=== PATIENT | female | born 1945 | race African-American/Black ===

== ENCOUNTER → 2017-08-14 | Outpatient (CLI) | payer MEDICARE, OTHER ==
[~2017-08-14] MED LIST: ASPIR 8181 MG PO; CLINDAMYCIN HC300 MG PO; HYDROCODONE PO; IBUPROFEN 800 MG; IBUPROFEN PO; LISINOPRIL20 MG PO; LORTAB 7.5-5001 EACH PO; MELOXICAM PO; NEXIUM40 MG PO; SEPTRA DS TABL1 EACH PO; SIMVASTATIN20 MG PO; SUCRALFATE1 GM PO; VERAPAMIL ER240 MG PO
--- NOTE | 2017-08-14 12:58 | Diagnostic Imaging Report ---
PROCEDURE:X-RAY RIGHT FOOT, COMPLETE COMPARISON:None. INDICATIONS:RIGHT FOOT PAIN FINDINGS: There are no fractures, dislocations, lytic or blastic lesions. Dorsal and plantar calcaneal enthesophyte. The bones are well-mineralized. The soft-tissues are unremarkable. CONCLUSION: No acute osseous abnormalities radiograph. Dictated by: Braeden Sheffield M.D. on 08/14/2017 at 12:59 Electronically approved by: Braeden Sheffield M.D. on 08/14/2017 at 12:59
== END ==
LOC: RAD 11:58
PROVIDERS: ATTEND Internal Medicine
DX: M79.671 Pain in right foot (principal)

== ENCOUNTER → 2017-09-02 | Day surgery (SDC) | payer MEDICARE, OTHER ==
[2017-08-27 11:46] LABS: BASOPHILS % 0.5 % (0.0-1.0); EOSINOPHILS # (AUTO) 0.1 (0.0-0.4); EOSINOPHILS % 1.8 % (0.0-6.0); HEMATOCRIT 38.3 % (34.2-44.1); HEMOGLOBIN 12.7 g/dL (12.0-16.0); LYMPHOCYTES # (AUTO) 2.3 (1.0-3.2); LYMPHOCYTES % 29.7 % (18.0-39.1); MEAN CORPUSCULAR HEMOGLOBIN 25.5 pg (28-32); MEAN CORPUSCULAR HGB CONC 33.2 g/dL (31-35); MEAN CORPUSCULAR VOLUME 76.8 fL (81-99); MONOCYTES # (AUTO) 0.7 (0.2-0.8); MONOCYTES % 8.3 % (4.4-11.3); NEUTROPHILS # (AUTO) 4.7 (2.1-6.9); NEUTROPHILS % 59.4 % (38.7-80.0); PLATELET COUNT 186 x10e3/uL (140-360); RED BLOOD COUNT 4.99 x10e6/uL (3.6-5.1); RED CELL DISTRIBUTION WIDTH 16.4 % (11.7-14.4)
[~2017-09-02] MED LIST changes: +ALEVE PO; +FENTANYL CITRATE/PF 100MCG/2 ML INJ ONE; +FISH OIL PO; +HYOSCYAMINE SULFATE 0.5 MG/ML AMP ONE; +MIDAZOLAM HCL 2 MG/2 ML VIAL ONE; +NORCO 7.5-3251 EACH PO; +PROPOFOL IV EMULSION 10 MG/ML 50 ML VIAL ONE
--- OUTSIDE RECORDS SUMMARY | 2017-09-02 07:30 | XMS REPORT | Clinical Summary ---
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 Name Role Phone Jose Garcia MD PCP Allergies Not on File Current Medications Not on file Active Problems Not on file Encounters Date Type Specialty Care Team Description 08/11/2017 Transcribe Physical Therapy Simon Yoo MD Spondylolisthesis of Orders lumbar region (Primary Dx) after 09/01/2016 Social History Tobacco Use Types Packs/Day Years Used Date Never Assessed Sex Assigned at Date Recorded Not on file Last Filed Vital Signs Not on file Plan of Treatment Date Type Specialty Care Team Description 09/02/2017 Office Visit Physical Therapy System, Provider Not In, 09/04/2017 Office Visit Physical Therapy System, Provider Not In, Nita Swanson S, PT 09/09/2017 Office Visit Physical Therapy System, Provider Not In, Health Maintenance Due Date Last Done Comments BREAST CANCER SCREENING 1996 COLON CANCER SCREENING 1996 SHINGRIX VACCINE (#1) 1996 ZOSTER VACCINE 2006 PNEUMOCOCCAL 2011 POLYSACCHARIDE VACCINE AGE 65 AND OVER PNEUMOCOCCAL-13 2011 INFLUENZA VACCINE 11/11/2017 Results Not on fileafter 09/01/2016 Insurance Payer Benefit Subscriber ID Type Phone Address Plan / Group [facility] MEDICARE [facility] DUAL xxxxxxxxx HMO COMPLETE MCR
--- OUTSIDE RECORDS SUMMARY | 2017-09-02 07:30 | XMS REPORT ---
[facility] Address Unknown Phone Unavailable Care Team Providers Care Shipper Receiver Name Role Phone LICO BRIGHT Unavailable Unavailable Problems This patient has no known problems. Allergies, Adverse Reactions, Alerts This patient has no known allergies or adverse reactions. Medications This patient has no known medications. Results Test Description Test Time Test Comments Text Results Atomic Results Result Comments FOOT RIGHT COMPLETE [place] [id number] [place] [address] Patient Name: NYLA COSBY MR #: [id number] : 1945 Age/Sex: 72/F Req # : [id number] Adm Physician: Ordered by: LICO BRIGHT MD Report #: [id number] Location: [facility] Room/Bed: Procedure: [id number] DX/FOOT RIGHT COMPLETE Exam Date: 08/14/17 Exam Time : 1225 REPORT STATUS: Signed PROCEDURE: X-RAY RIGHT FOOT, COMPLETE COMPARISON: None. INDICATIONS: RIGHT FOOT PAIN FINDINGS: There are no fractures, dislocations, lytic or blastic lesions. Dorsal and plantar calcaneal enthesophyte. The bones are well-mineralized. The soft-tissues are unremarkable. CONCLUSION: No acute osseous abnormalities radiograph. Dictated by: Braeden Emery M.D. on 2017 at 12:59 Electronically approved by: Braeden Emery M.D. on 2017 at 12:59 Dictated By: BRAEDEN EMERY MD 1251 Transcribed By: TITO on 08/14/17 1259 COPY TO: LICO BRIHGT MD
--- NOTE | 2017-09-02 14:18 | Operative Report ---
DATE OF PROCEDURE: September 02, 2017 REFERRING PHYSICIAN: Dr. Lico Bright PROCEDURES PERFORMED 1. Esophagogastroduodenoscopy with esophageal brushings and esophageal dilatation and biopsies. 2. Colonoscopy with polypectomy. INDICATIONS FOR EGD: Dysphagia, odynophagia. INDICATIONS FOR COLONOSCOPY: Colorectal cancer screening. MEDICATION: Patient was done under MAC. Please see anesthesiologist's note. PROCEDURE: With the patient in the left lateral decubitus position, the flexible fiberoptic Olympus gastroscope was introduced into the esophagus under direct visualization without any difficulty. There were multiple yellowish-whitish plaques noted in the esophagus, and brushings were obtained and sent to stain for leena. A mild stricture was noted in the distal esophagus that was dilated to a size 52-Slovak Vasquez. A minute tongue of velvety red mucosa was noted to extend proximally from the GE junction, and biopsies were obtained to rule out Guevara's. The scope was then advanced with ease into the stomach. Mucosa overlying the antrum and the body revealed some patchy erythema and mild to moderate edema, and biopsies were obtained and sent to stain for H. pylori. The pyloric channel was ulcerated, but it was traversed with ease. The scope was advanced all the way to the 2nd portion of the duodenum. The scope was then withdrawn slowly. Mucosa overlying the proximal 2nd portion and the duodenal bulb appeared to be within normal limits. The scope was then withdrawn back into the stomach and retroflexed. Mucosa overlying the fundus appeared to be within normal limits. Also, an intact Bing fundoplication was noted. The scope was straightened out. The stomach was decompressed. The scope was subsequently withdrawn. Patient tolerated the procedure well. IMPRESSION 1. Rule out leena esophagitis. 2. Esophageal stricture dilated to size 52-Slovak Vasquez. 3. Rule out Guevara's esophagus. 4. Status post Bing fundoplication, intact. 5. Gastritis, biopsied. Biopsy sent to stain for H. pylori. 6. Ulcerated pyloric channel. PLAN: Follow up histology. Initiate Protonix 40 mg 1 p.o. q.a.m. a.c. and Diflucan 200 mg 1 p.o. daily times 7 days. The patient was then turned around. After adequate lubrication of the anal canal, a flexible fiberoptic Olympus colonoscope was inserted into the rectum with ease and advanced all the way to the cecum. Diverticular disease was noted throughout the colon. The scope was then withdrawn slowly, and the mucosa overlying the ascending and transverse, other than for diverticular disease, appeared to be within normal limits. One polyp was hot biopsied from the descending colon. Diverticular disease was noted to involve the descending and the sigmoid. Two polyps were hot biopsied from the sigmoid colon. The scope was then retroflexed into the distal rectum, and small internal hemorrhoids were noted, none of which was actively bleeding. The scope was then straightened out. The scope was then subsequently withdrawn. Patient tolerated the procedure well. IMPRESSION 1. Pandiverticulosis. 2. Descending colon polyp, hot biopsied. 3. Sigmoid colon polyps, minute, times 2, hot biopsied. 4. Small internal hemorrhoids, none actively bleeding. PLAN: Follow up histology. Initiate high-fiber, low-fat diet. Initiate high-fiber supplement. Patient will need a followup colonoscopy in 3 years. Job#: [id number] cc:LICO BRIGHT MD
== END | disposition home or self-care (01) ==
LOC: OR 07:27
PROVIDERS: ATTEND Internal Medicine Gastroenterology
DX: Z12.11 Encounter for screening for malignant neoplasm of colon (principal); K63.5 Polyp of colon; K29.70 Gastritis, unspecified, without bleeding; K22.2 Esophageal obstruction; K25.9 Gastric ulcer, unspecified as acute or chronic, without hemorrhage or perforation; K57.30 Diverticulosis of large intestine without perforation or abscess without bleeding; K20.9 Esophagitis, unspecified; K59.00 Constipation, unspecified; K64.8 Other hemorrhoids; Z98.890 Other specified postprocedural states; I10 Essential (primary) hypertension; Z01.810 Encounter for preprocedural cardiovascular examination; Z01.812 Encounter for preprocedural laboratory examination; Z79.82 Long term (current) use of aspirin; Z68.33 Body mass index [BMI] 33.0-33.9, adult
CPT/HCPCS: 36415; 43239; 43450; 45384; 84443; 85025; 93005; J1980; J2250; 45378

== ENCOUNTER → 2017-09-25 | Outpatient (CLI) | payer MEDICARE, OTHER ==
[~2017-09-25] MED LIST changes: -FENTANYL CITRATE/PF 100MCG/2 ML INJ ONE; -HYOSCYAMINE SULFATE 0.5 MG/ML AMP ONE; -MIDAZOLAM HCL 2 MG/2 ML VIAL ONE; -PROPOFOL IV EMULSION 10 MG/ML 50 ML VIAL ONE
--- NOTE | 2017-10-01 08:31 | Diagnostic Imaging Report ---
#[id number] - MGSCRBIL #BILATERAL DIGITAL SCREENING MAMMOGRAM WITH CAD: 09/25/2017 CLINICAL: Routine screening. Comparison is made to exams dated: 09/24/2016 mammogram and 09/21/2015 mammogram - [facility]. Current study contains 5 films. There are scattered fibroglandular elements in both breasts. Current study was also evaluated with a Computer Aided Detection (CAD) system. There are benign vascular calcifications and scattered calcifications in both breasts. No significant masses, calcifications, or other findings are seen in either breast. There has been no significant interval change. IMPRESSION: BENIGN There is no mammographic evidence of malignancy. A 1 year screening mammogram is recommended. The patient will be notified by letter of the results. Gopal Dean Jr., D.O. cw/:09/30/2017 12:00:32 Deputy Clerk: SHERIF SMITH, [facility] letter sent: Compared to Prior B9 Mammogram BI-RADS: 2 Benign
== END | disposition home or self-care (01) ==
LOC: MAMMO 08:57
PROVIDERS: ATTEND Internal Medicine
DX: Z12.31 Encounter for screening mammogram for malignant neoplasm of breast (principal)
CPT/HCPCS: 77067

== ENCOUNTER → 2018-01-19 | Outpatient (CLI) | payer OTHER ==
--- NOTE | 2018-01-20 09:29 | Diagnostic Imaging Report ---
History: Low back pain with sciatica in left leg Comparison studies: None Technique: Sagittal, coronal and axial T2 , sagittal T1 and IR, axial spin density oblique. Intravenous contrast: None Findings: Number of lumbar vertebral bodies:5 Alignment: Mild grade 1 anterolisthesis of L4 over L5 (0.7 cm), grade 1 anterolisthesis of L5 over S1 (0.9 cm).No scoliosis. Soft tissues: No T2 hyperintense inflammatory changes. Paraspinal muscles: Fatty infiltration of the paraspinal musculature secondary to mild to moderate atrophy or significant at the lumbosacral junction. Lower thoracic cord:Normal in signal and morphology. The tip of the conus is at L1 inferior endplate. Cauda equina: No masses. No arachnoiditis. Vertebrae: Normal in height and signal intensity. No compression fractures, infection or neoplasm. Degenerative changes: Disc degeneration with decreased intervertebral space and loss of T2 signal at the lower thoracic spine, T10-11, T11-T12. L1-L2: No abnormalities. L2-L3: Mild disc degeneration with loss of T2 signal. Mild diffuse disc bulge and mild facet hypertrophy without significant canal stenosis or foraminal narrowing. L3-L4: Disc degeneration with loss of T2 signal and decreased intervertebral space. Diffuse disc bulge and mild facet hypertrophy results in mild canal stenosis and mild bilateral foraminal narrowing. L4-L5: Disc degeneration with decreased T2 signal and decreased intervertebral space. Grade 1 degenerative anterolisthesis. Uncoverage of superior disc, diffuse disc bulge and moderate facet hypertrophy results in moderate canal stenosis, narrowing of the bilateral subarticular recesses and moderate right and mild left foraminal narrowing. L5-S1: Disc degeneration with decreased intervertebral space. Mild endplate edema towards the left side. Grade 1 degenerative anterolisthesis. Uncoverage of the superior disc material, diffuse disc bulge, severe facet hypertrophy and ligamentum flavum thickening results in severe canal stenosis, moderate right and severe left foraminal narrowing. Additional findings: Degenerative changes of the bilateral SI joints IMPRESSION: Severe canal stenosis, moderate right and severe left foraminal narrowing at L5-S1 secondary to degenerative grade 1 anterolisthesis, diffuse disc bulge, severe facet hypertrophy and ligamentum flavum thickening. Impingement of the exiting L5 nerve root at the foramina may explain patient's symptoms. Moderate canal stenosis, narrowing of the bilateral subarticular recesses and moderate right foraminal narrowing at L4-L5. Other degenerative changes as described above Signed by: DR Hair Herring M.D. on 01/20/2018 9:26 AM
== END ==
LOC: MRI 16:51
PROVIDERS: ATTEND Internal Medicine
DX: M79.605 Pain in left leg (principal); M54.42 Lumbago with sciatica, left side; G62.9 Polyneuropathy, unspecified
CPT/HCPCS: 72148

== ENCOUNTER → 2018-10-01 | Outpatient (CLI) | payer OTHER | LOC: MAMMO 10:39 | PROVIDERS: ATTEND Internal Medicine | DX: Z12.31 Encounter for screening mammogram for malignant neoplasm of breast (principal) | CPT/HCPCS: 77067 ==

== ENCOUNTER → 2018-10-21 | Outpatient (CLI) | payer MEDICARE, OTHER ==
[~2018-10-21] MED LIST changes: +GADOBENATE DIMEGLUMINE 1 ML IV ONE; +PANTOPRAZOLE SO40 MG PO
[2018-10-21 11:32] LABS: BLOOD UREA NITROGEN 16 mg/dL (7-26); BUN/CREATININE RATIO 16 (6-25); CREATININE, SERUM 0.97 mg/dL (0.57-1.11); EST GLOMERULAR FILTRATION RATE > 60 ML/MIN (60-)
--- NOTE | 2018-10-21 16:14 | Diagnostic Imaging Report ---
TECHNIQUE: Magnetic resonance imaging of the left forearm was performed without and with injected contrast. 18 cc of MultiHance administered COMPARISON: None available. HISTORY: Lump on arm FINDINGS: Bone marrow signal is normal. No edema or infiltrating lesion. Muscle bulk intact. No edema or atrophy. Soft tissue marker placed over the dorsal forearm. No concerning mass or abnormal enhancement present. Lipomatous tissue is visualized in this region with possible 2 cm lipoma. IMPRESSION: Lipomatous tissue versus ill-defined lipoma in the dorsal forearm adjacent to the soft tissue marker. Signed by: Dr. Juan David Sun M.D. on 10/21/2018 4:10 PM
== END ==
LOC: MRI 10:19
PROVIDERS: ATTEND Specialist
DX: R22.32 Localized swelling, mass and lump, left upper limb (principal)
CPT/HCPCS: 36415; 73220; 82565; 84520; A9577

== ENCOUNTER → 2018-11-09 | Day surgery (SDC) | payer MEDICARE, OTHER ==
[2018-11-08 14:37] LABS: BASOPHILS % 0.5 % (0.0-1.0); EOSINOPHILS # (AUTO) 0.1 (0.0-0.4); EOSINOPHILS % 1.5 % (0.0-6.0); HEMATOCRIT 37.5 % (34.2-44.1); HEMOGLOBIN 12.3 g/dL (12.0-16.0); LYMPHOCYTES # (AUTO) 2.4 (1.0-3.2); LYMPHOCYTES % 32.8 % (18.0-39.1); MEAN CORPUSCULAR HEMOGLOBIN 25.9 pg (28-32); MEAN CORPUSCULAR HGB CONC 32.8 g/dL (31-35); MEAN CORPUSCULAR VOLUME 78.9 fL (81-99); MONOCYTES # (AUTO) 0.7 (0.2-0.8); MONOCYTES % 8.8 % (4.4-11.3); NEUTROPHILS # (AUTO) 4.2 (2.1-6.9); NEUTROPHILS % 56.3 % (38.7-80.0); PLATELET COUNT 225 x10e3/uL (140-360); RED BLOOD COUNT 4.75 x10e6/uL (3.6-5.1); RED CELL DISTRIBUTION WIDTH 16.4 % (11.7-14.4)
--- NOTE | 2018-11-08 15:00 | Diagnostic Imaging Report ---
EXAMINATION: CHEST 2 VIEWS INDICATION: Pre-operative COMPARISON: None FINDINGS: TUBES and LINES: None. LUNGS: The lung volumes are low. Mild patchy opacity at the left lung base. No pulmonary edema. PLEURA: No pleural effusion or pneumothorax. HEART AND MEDIASTINUM: The cardiomediastinal silhouette is normal in size and contour. Atherosclerotic calcifications of the thoracic aorta. BONES AND SOFT TISSUES: No acute fracture or dislocation. Degenerative changes of the thoracic spine. UPPER ABDOMEN: No free air under the diaphragm. IMPRESSION: Low lung volumes. Patchy opacities at the left lung base likely represent subsegmental atelectasis. Signed by: Diana Hagen MD on 11/08/2018 2:56 PM
[~2018-11-09] MED LIST changes: +BUPIVACAINE HCL 0.5% INJ 30 ML VIAL INJ ONE; +CEFAZOLIN SOD 1 GM/NS 50ML 50 ML IV ONE; +DEXAMETHASONE SOD PHOS INJ 4 MG/ML VIAL ONE; +FENTANYL CITRATE/PF 100MCG/2 ML INJ ONE; -GADOBENATE DIMEGLUMINE 1 ML IV ONE; +KETOROLAC TROMETHAMINE 30 MG/ML VIAL ONE; +LIDOCAINE HCL 2% LOCAL INJ 5 ML SDV VIAL INJ ONE; +MIDAZOLAM HCL 2 MG/2 ML VIAL ONE; +ONDANSETRON HCL INJ 2MG/ML 2ML 2 MG/ML VIAL ONE; +PROPOFOL IV EMULSION 10 MG/ML 20 ML VIAL ONE; +SEVOFLURANE INHAL SOLN 250 ML PEN BTL ONE; +SIMETHICONE 80 MG CHEW PO ONE
--- OUTSIDE RECORDS SUMMARY | 2018-11-09 05:46 | XMS REPORT | Clinical Summary ---
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 Last Filed Vital Signs Not on file Plan of Treatment Health Maintenance Due Date Last Done Comments BREAST CANCER SCREENING 1996 COLONOSCOPY SCREENING 1996 SHINGLES VACCINES (#1) 1996 65+ PNEUMOCOCCAL VACCINE 2011 (1 of 2 - PCV13) INFLUENZA VACCINE 11/11/2018 Results Not on fileafter 11/08/2017 Insurance Type Payer Benefit Subscriber ID Effective Phone Address Plan / Dates Group [facility]IC[facility] DUAL xxxxxxxxx 2017-P COMPLETE resent [facility] Advance Directives Patient has advance care planning documents on file. For more information, [place] contact: Bradley Day [address] [place] [id number]
--- OUTSIDE RECORDS SUMMARY | 2018-11-09 05:46 | XMS REPORT ---
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 Allergies, Adverse Reactions, Alerts This patient has no known allergies or adverse reactions. Medications This patient has no known medications. Results Test Description Test Time Test Comments Text Results Atomic Results Result Comments CHEST 2 VIEWS 2018-11-08 14:54:00 [place] [address] Patient Name: NYLA COSBY MR #: [id number] : 1945 Age/Sex: 73/F Req #: [id number] Adm Physician: Ordered by: MARLENY SERRA MD Report #: [id number] Location: OR Room/Bed: Procedure: [id number] DX/CHEST 2 VIEWS Exam Date: 11/08/18 Exam Time: 1434 REPORT STATUS: Signed EXAMINATION: CHEST 2 VIEWS INDICATION: Pre-operative COMPARISON: None FINDINGS: TUBES and LINES: None. LUNGS: The lung volumes are low. Mild patchy opacity at the left lung base. No pulmonary edema. PLEURA: No pleural effusion or pneumothorax. HEART AND MEDIASTINUM: The cardiomediastinal silhouette is normal in size and contour. Atherosclerotic calcifications of the thoracic aorta. BONES AND SOFT TISSUES: No acute fracture or dislocation. Degenerative changes of the thoracic spine. UPPER ABDOMEN: No free air under the diaphragm. IMPRESSION: Low lung volumes. Patchy opacities at the left lung base likely represent subsegmental atelectasis. Signed by: Aracelis Castro MD on 11/08/2018 2:56 PM Dictated By: ARACELIS CASTRO MD 2554 Transcribed By: MAXIMO on 11/08/18 3931 COPY TO: MARLENY SERRA MD MRI FOREARM LEFT WOW 2018-10-21 16:07:00 [place] [address] Patient Name: NYLA COSBY MR #: [id number] : 1945 Age/Sex: 73/F Req #: [id number] Adm Physician: Ordered by: MARLENY SERRA MD Report #: [id number] Location: MRI Room/Bed: Procedure: [id number] MRI/MRI FOREARM LEFT WOW Exam Date: Exam Time: REPORT STATUS: Signed TECHNIQUE: Magnetic resonance imaging of the left forearm was perfo rmed without and with injected contrast. 18 cc of MultiHance administered COMPARISON: None available. HISTORY: Lump on arm FINDINGS: Bone marrow signal is normal. No edema or infiltrating lesion. Muscle bulk intact. No edema or atrophy. Soft tissue marker placed over the dorsal forearm. No concerning mass or abnormal enhancement present. Lipomatous tissue is visualized in this region with possible 2 cm lipoma. IMPRESSION: Lipomatous tissue versus ill-defined lipoma in the dorsal forearm adjacent to the soft tissue marker. Signed by: Dr. Jayesh Rodriguez M.D. on 10/21/2018 4:10 PM Dictated By: JAYESH RODRIGUEZ MD 1610 Transcribed By: MAXIMO on 10/21/181609 COPY TO: MARLENY SERRA MD MAMMOGRAPHY DIGITAL SCR BILAT 2018-10-01 11:42:00 [place] [id number] [place] [address] Patient Name: NYLA COSBY MR #: [id number] : 1945 Age/Sex: 73/F Req #: [id number] Adm Physician: Ordered by: LICO BRIGHT MD Report #: [id number] Location: MAMMO Room/Bed: Procedure: [id number] MG/MAMMOGRAPHY DIGITAL SCR BILAT Exam Date: 10/01/18 Exam Time: 1116 REPORT STATUS: Signed #[id number] - MGSCRBIL #BILATERAL DIGITAL SCREENING MAMMOGRAM WITH CAD: 10/01/2018 CLINICAL: Routine screening. Comparison is made to exams dated: 09/25/2017 mammogram and 09/24/2016 mammogram - [facility]. Current study contains 5 films. There are scattered fibroglandular elements in both breasts. Current study was also evaluated with a Computer Aided Detection (CAD) system. There are benign vascular calcifications and calcifications in both breasts. No significant masses, calcifications, or other findings are seen in either breast. There has been no significant interval change. IMPRESSION: BENIGN There is no mammographic evidence of malignancy. A 1 year screening mammogram is recommended. The patient will be notified by letter of the results. Gopal willis/wilmer:10/12/2018 15:23:56 Parts Identifier: Gabriela FORMAN(Augie)(M), [facility] letter sent: Compared to Prior B9 Mammogram BI-RADS: 2 Benign Dictated By: GOPAL DEAN DO 1523 Transcribed By: WILMER on 10/12/18 1523 COPY TO: LICO BRIGHT MD MRI SPINE LUMBAR WO 2018-01-20 09:03:00 [place] [address] Patient Name: NYLA COSBY MR #: [id number] : 1945 Age/Sex: 72/F Req #: [id number] Adm Physician: Ordered by: LICO BRIGHT MD Report #: [id number] Location: MRI Room/Bed: Procedure: [id number] MRI/MRI SPINE LUMBAR WO Exam Date: Exam Time: REPORT STATUS: Signed History: Low back pain with sciatica in left leg Comparison studies: None Technique: Sagittal, coronal and axial T2 , sagittal T1 and IR, axial spin density oblique. Intravenous contrast: None Findings: Number of lumbar vertebral bodies:5 Alignment: Mild grade 1 anterolisthesis of L4 over L5 (0.7 cm), grade 1 anterolisthesis of L5 over S1 (0.9 cm).No scoliosis. Soft tissues: No T2 hyperintense inflammatory changes. Paraspinal muscles: Fatty infiltration of the paraspinal musculature secondary to mild to moderate atrophy or significant at the lumbosacral junction. Lower thoracic cord:Normal in signal and morphology. The tip of the conus is at L1 inferior endplate. Cauda equina: No masses. No arachnoiditis. Vertebrae: Normal in height and signal intensity. No compression fractures, infection or neoplasm. Degenerative changes: Disc degeneration with decreased intervertebral space and loss of T2 signal at the lower thoracic spine, T10-11, T11-T12. L1- L2: No abnormalities. L2-L3: Mild disc degeneration with loss of T2 signal. Mild diffuse disc bulge and mild facet hypertrophy without significant canal stenosis or foraminal narrowing. L3-L4: Disc degeneration with loss of T2 signal and decreased intervertebral space. Diffuse disc bulge and mild facet hypertrophy results in mild canal stenosis and mild bilateral foraminal narrowing. L4-L5: Disc degeneration with decreased T2 signal and decreased intervertebral space. Grade 1 degenerative anterolisthesis. Uncoverage of superior disc, diffuse disc bulge and moderate facet hypertrophy results in moderate canal stenosis, narrowing of the bilateral subarticular recesses and moderate right and mild left foraminal narrowing. L5-S1: Disc degeneration with decreased intervertebral space. Mild endplate edema towards the left side. Grade 1 degenerative anterolisthesis. Uncoverage of the superior disc material, diffuse disc bulge, severe facet hypertrophy and ligamentum flavum thickening results in severe canal stenosis, moderate right and severe left foraminal narrowing. Additional findings: Degenerative changes of the bilateral SI joints IMPRESSION: Severe canal stenosis, moderate right and severe left foraminal narrowing at L5-S1 secondary to degenerative grade 1 anterolisthesis, diffuse disc bulge, severe facet hypertrophy and ligamentum flavum thickening. Impingement of the exiting L5 nerve root at the foramina may explain patient's symptoms. Moderate canal stenosis, narrowing of the bilateral subarticular recesses and moderate right foraminal narrowing at L4-L5. Other degenerative changes as described above Signed by: DR Hair Herring M.D. on 01/20/2018 9:26 AM Dictated By: HAIR LYON MD 5 Transcribed By: MAXIMO on 01/20/18925 COPY TO: LICO BRIGHT MD MAMMOGRAPHY DIGITAL SCR BILAT 2017-09-25 10:40:00 [place] [address] Patient Name: NYLA COSBY MR #: [id number] : 1945 Age/Sex: 72/F Req #: [id number] Adm Physician: Ordered by: LICO BRIGHT MD Report #: [id number] Location: MAMMO Room/Bed: Procedure: MG/MAMMOGRAPHY DIGITAL SCR BILAT Exam Date: 09/25/17 Exam Time: 909 REPORT STATUS: Signed #[id number] - MGSCRBIL #BILATERAL DIGITAL SCREENING MAMMOGRAM WITH CAD: 09/25/2017 CLINICAL: Routine screening. Comparison is made to exams dated: 09/24/2016 mammogram and 09/21/2015 mammogram - [facility]. Current study contains 5 films. There are scattered fibroglandular elements in both breasts. Current study was also evaluated with a Computer Aided Detection (CAD) system. There are benign vascular calcifications and scattered calcifications in both breasts. No significant masses, calcifications, or other findings are seen in either breast. There has been no significant interval change. IMPRESSION: BENIGN There is no mammographic evidence of malignancy. A 1 year screening mammogram is recommended. The patient will be notified by letter of the resu lts. Gopal Dean Jr., D.O. cw/:09/30/2017 12:00:32 Parts Identifier: SHERIF SMITH [facility] letter sent: Compared to Prior B9 Mammogram BI-RADS: 2 Benign Dictated By: GOPAL DEAN DO 1200 Transcribed By: WILMER on 09/30/17 1200 COPY TO: LICO BRIGHT MD FOOT RIGHT [place] [address] Patient Name: NYLA COSBY MR #: [id number] : 1945 Age/Sex: 72/F Req #: [id number] Adm Physician: Ordered by: LICO BRIGHT MD Report #: [id number] Location: [facility] Room/Bed: Procedure: [id number] DX/FOOT RIGHT COMPLETE Exam Date: 08/14/17 Exam Time: 1225 REPORT STATUS: Signed PROCEDURE: X-RAY RIGHT FOOT, COMPLETE COMPARISON: None. INDICATIONS: RIGHT FOOT PAIN FINDINGS: There are no fractures, dislocations, lytic or blastic lesions. Dorsal and plantar calcaneal enthesophyte. The bones are well-mineralized. The soft-tissues are unremarkable. CONCLUSION: No acute osseous abnormalities radiograph. Dictated by: Braeden Emery M.D. on 08/14/2017 at 12:59 Electronically approved by: Braeden Emery M.D. on 08/14/2017 at 12:59 Dictated By: BRAEDEN EMERY MD 1253 Transcribed By: TITO on 08/14/17 1257 COPY TO: LICO BRIGHT MD
[2018-11-09 11:00] VITALS: BP 120/70
--- NOTE | 2018-11-09 11:05 | Operative Report ---
DATE OF PROCEDURE: 11/09/2018 SURGEON: Simon Yoo MD BACKEND JAVA DEVELOPER: Blaine Dugan PA-C. PREOPERATIVE DIAGNOSIS: Mass, left forearm. POSTOPERATIVE DIAGNOSIS: Mass, left forearm. PROCEDURE: Excisional biopsy, left forearm. INDICATIONS: The patient is a 73-year-old lady, who has clinic signs and symptoms consistent with a 2 cm lipoma in the dorsum of her left forearm. She states that this bothers her and she would like to have it removed. The risks and benefits were explained. She states she understands and wishes to proceed. PROCEDURE IN DETAIL: The patient was brought to the operating room and placed under general anesthetic. Her left upper extremity was prepped and draped in a sterile manner. A preoperative time-out was performed. The extremity was exsanguinated and a proximal tourniquet was inflated to 250 mmHg. An incision was made directly over the mass. Blunt dissection was carried out to excise a loosely encapsulated lipoma. This was sent to pathology. The wound was irrigated and closed. A 7 to 10 mL of 0.5% Marcaine were injected around the incision. A sterile bandage was applied. There was no blood loss and all needle and sponge counts were correct. Simon Yoo MD DR/BRIDGETT /[id number]
== END | disposition home or self-care (01) ==
LOC: OR 05:40
PROVIDERS: ATTEND Specialist
DX: D17.22 Benign lipomatous neoplasm of skin and subcutaneous tissue of left arm (principal); I10 Essential (primary) hypertension; Z79.82 Long term (current) use of aspirin; Z01.810 Encounter for preprocedural cardiovascular examination; Z01.812 Encounter for preprocedural laboratory examination; Z01.818 Encounter for other preprocedural examination
CPT/HCPCS: 36415; 71046; 85025; 88304; 93005; J0690; J1100; J1885; J2001; J2250; J2405; J3010

== ENCOUNTER → 2018-12-09 | Day surgery (SDC) | payer MEDICARE, OTHER ==
[~2018-12-09] MED LIST changes: -BUPIVACAINE HCL 0.5% INJ 30 ML VIAL INJ ONE; -CEFAZOLIN SOD 1 GM/NS 50ML 50 ML IV ONE; -DEXAMETHASONE SOD PHOS INJ 4 MG/ML VIAL ONE; +EPHEDRINE SULFATE INJ 50 MG/10 ML SYR ONE; -KETOROLAC TROMETHAMINE 30 MG/ML VIAL ONE; -LIDOCAINE HCL 2% LOCAL INJ 5 ML SDV VIAL INJ ONE; -ONDANSETRON HCL INJ 2MG/ML 2ML 2 MG/ML VIAL ONE; +PHENYLEPHRINE HCL 1% 10 MG/ML VIAL ONE; -PROPOFOL IV EMULSION 10 MG/ML 20 ML VIAL ONE; +PROPOFOL IV EMULSION 10 MG/ML 50 ML VIAL ONE; -SEVOFLURANE INHAL SOLN 250 ML PEN BTL ONE; -SIMETHICONE 80 MG CHEW PO ONE
--- OUTSIDE RECORDS SUMMARY | 2018-12-09 09:29 | XMS REPORT | Clinical Summary ---
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
--- NOTE | 2018-12-09 13:15 | Operative Report ---
DATE OF PROCEDURE: 12/09/2018 SURGEON: Jeremiha Brand MD PROCEDURES: EGD with esophageal dilatation, brushings and biopsies. INDICATIONS FOR PROCEDURE: Dysphagia. MEDICATIONS: The patient was done under MAC, please see anesthesiologist's note. PROCEDURE IN DETAIL: With the patient in the left lateral decubitus position, a flexible fiberoptic Olympus gastroscope was introduced into the esophagus under direct visualization without any difficulty. There were some scattered whitish plaques noted in the esophagus and brushings were obtained to rule out Leslie. Also, there were some concentric rings noted in the distal esophagus suspicious for eosinophilic esophagitis and biopsies were obtained. There was a mild stricture noted at the GE junction and that was dilated to size 48-Ivorian Vasquez. The scope was then advanced with ease into the stomach traversing a small sliding hiatal hernia. The mucosa overlying the antrum and the body revealed some patchy erythema and moderate edema, and biopsies were obtained and sent to stain for H. pylori. The pylorus was of normal contour and shape, it was intubated with ease and the scope was advanced all the way to the second portion of the duodenum. The scope was then withdrawn slowly, mucosa overlying the proximal, second portion and duodenal bulb appeared to be within normal limits. The scope was then withdrawn back into the stomach and retroflexed and it appeared that the patient had a Bing fundoplication which appears to be loose. The fundus appeared to be within normal limits. The scope was then straightened out, it was subsequently withdrawn, and the patient tolerated the procedure well. IMPRESSION: 1. Rule out Leslie esophagitis. 2. Rule out eosinophilic esophagitis. 3. Esophageal stricture dilated to size 48-Ivorian Vasquez. 4. Small hiatal hernia. 5. Status post slipped Bing. 6. Gastritis, biopsied, biopsies sent to stain for Helicobacter pylori. PLAN: Follow up histology. Increase Protonix to 40 mg one p.o. before meals b.i.d. Jeremiah Brand MD [facility] [place]/MODL /[id number] cc: Yogi Garcia MD
[2018-12-09 13:30] VITALS: BP 150/76
== END | disposition home or self-care (01) ==
LOC: OR 09:07
PROVIDERS: ATTEND Internal Medicine Gastroenterology
DX: B37.81 Candidal esophagitis (principal); K22.2 Esophageal obstruction; K44.9 Diaphragmatic hernia without obstruction or gangrene; R13.10 Dysphagia, unspecified; K29.70 Gastritis, unspecified, without bleeding; Z68.33 Body mass index [BMI] 33.0-33.9, adult; I10 Essential (primary) hypertension; Z86.010 Personal history of colon polyps
CPT/HCPCS: 43239; 43450; J2250; J2370; J2704; J3010; 43235

== ENCOUNTER → 2019-10-03 | Outpatient (CLI) | payer OTHER ==
[~2019-10-03] MED LIST changes: -EPHEDRINE SULFATE INJ 50 MG/10 ML SYR ONE; -FENTANYL CITRATE/PF 100MCG/2 ML INJ ONE; -MIDAZOLAM HCL 2 MG/2 ML VIAL ONE; -PHENYLEPHRINE HCL 1% 10 MG/ML VIAL ONE; -PROPOFOL IV EMULSION 10 MG/ML 50 ML VIAL ONE
== END ==
LOC: MAMMO 10:14
PROVIDERS: ATTEND Internal Medicine
DX: Z12.31 Encounter for screening mammogram for malignant neoplasm of breast (principal)
CPT/HCPCS: 77067

== ENCOUNTER → 2020-02-29 | Outpatient (CLI) | payer OTHER ==
--- NOTE | 2020-02-29 12:19 | Diagnostic Imaging Report ---
MRI SPINE LUMBAR WO HISTORY: Fall, back and bilateral leg pain COMPARISON: MRI of the lumbar spine 01/19/2018 TECHNIQUE: Sagittal T1, sagittal T2, sagittal STIR, axial T2, coronal T2, and axial proton density weighted images of the lumbar spine were obtained without contrast. Motion artifacts obscure some details. DISCUSSION: Number of non-rib bearing lumbar vertebral bodies: 5. Alignment: Normal lordosis. Minimal thoracolumbar levoscoliosis is present. Vertebrae: No fractures, or neoplasm. Conus medullaris: Normal, ends at L1-L2. Cauda equina: No masses or arachnoiditis. Posterior paraspinal muscles: Mild fatty atrophy at the lumbosacral junction. Soft tissues: A few small T2 hyperintense lesions in the bilateral kidneys are most likely cysts. Overall unchanged mild to moderate multilevel disc degeneration is most prominent at L5-S1. There are slightly increased nonspecific mild inflammatory endplate changes at L5-S1 (type I Modic change). T12-L1: Patent canal and foramina. L1-L2: Patent canal and foramina. L2-L3: Disc bulge without significant canal stenosis. However, the thecal sac is slightly effaced due to epidural lipomatosis. Mild right foraminal stenosis due to disc bulge and facet arthrosis. No significant left foraminal stenosis. L3-L4: Mild right foraminal stenosis due to disc bulge and facet arthrosis. No significant canal or left foraminal stenosis. The thecal sac is slightly effaced due to epidural lipomatosis. L4-L5: Unchanged grade 1 anterolisthesis of L4 on L5 with severe bilateral L4-L5 facet arthrosis. Unchanged severe canal stenosis due to uncovered disc bulge and ligamentum flavum thickening. The thecal sac and cauda equina are effaced. Severe right and mild to moderate left foraminal stenoses due to uncovered disc bulge and facet arthrosis. L5-S1: Unchanged grade 2 anterolisthesis of L5 on S1 with severe bilateral L5-S1 facet arthrosis. Unchanged moderate to severe canal stenosis due to uncovered disc bulge and ligamentum flavum thickening. Severe bilateral foraminal stenoses is due to uncovered disc bulge and facet arthrosis. IMPRESSION: 1. Slightly increased nonspecific mild inflammatory endplate changes at L5-S1 (type I Modic change). 2. Otherwise, overall unchanged mild to moderate multilevel disc degeneration, most prominent at L5-S1. 3. Grade 1 anterolisthesis of L4 on L5 and grade 2 anterolisthesis of L5 on S1 with associated severe bilateral facet arthrosis. 4. Severe L4-L5 and moderate to severe L5-S1 degenerative canal stenoses. 5. Severe right L4-L5 and bilateral L5-S1 degenerative foraminal stenoses. Signed by: Dr. John Jackson M.D. on 02/29/2020 12:16 PM
== END ==
LOC: MRI 10:37
PROVIDERS: ATTEND Internal Medicine
DX: M51.36 Other intervertebral disc degeneration, lumbar region (principal); M48.061 Spinal stenosis, lumbar region without neurogenic claudication
CPT/HCPCS: 72148

== ENCOUNTER → 2020-04-05 | Day surgery (SDC) | payer OTHER ==
[2020-04-02 08:17] LABS: BASOPHILS # (AUTO) 0.1 (0.0-0.1); BASOPHILS % 0.7 % (0.0-1.0); EOSINOPHILS # (AUTO) 0.1 (0.0-0.4); EOSINOPHILS % 1.4 % (0.0-6.0); HEMATOCRIT 40.2 % (34.2-44.1); HEMOGLOBIN 13.1 g/dL (12.0-16.0); LYMPHOCYTES # (AUTO) 2.2 (1.0-3.2); LYMPHOCYTES % 23.1 % (18.0-39.1); MEAN CORPUSCULAR HGB CONC 32.6 g/dL (31-35); MEAN CORPUSCULAR VOLUME 79.9 fL (81-99); MONOCYTES # (AUTO) 0.7 (0.2-0.8); MONOCYTES % 7.4 % (4.4-11.3); NEUTROPHILS # (AUTO) 6.3 (2.1-6.9); NEUTROPHILS % 67.2 % (38.7-80.0); PLATELET COUNT 211 x10e3/uL (140-360); RED BLOOD COUNT 5.03 x10e6/uL (3.6-5.1); RED CELL DISTRIBUTION WIDTH 16.2 % (11.7-14.4)
[~2020-04-05] MED LIST changes: +FLUCONAZOLE 100 MG TAB ONE; +LIDOCAINE HCL 2% LOCAL INJ 5 ML SDV VIAL INJ ONE; +MIDAZOLAM HCL 2 MG/2 ML VIAL ONE; +PROPOFOL IV EMULSION 10 MG/ML 20 ML VIAL ONE; +TIZANIDINE HCL4 M1 PO
[2020-04-05 11:05] VITALS: BP 139/98
== END | disposition home or self-care (01) ==
LOC: ENDO 07:31
PROVIDERS: ATTEND Internal Medicine Gastroenterology
DX: K20.90 Esophagitis, unspecified without bleeding (principal); K29.70 Gastritis, unspecified, without bleeding; K21.9 Gastro-esophageal reflux disease without esophagitis; Z98.890 Other specified postprocedural states; I10 Essential (primary) hypertension; Z01.810 Encounter for preprocedural cardiovascular examination; Z01.812 Encounter for preprocedural laboratory examination; Z20.828 Contact with and (suspected) exposure to other viral communicable diseases; Z79.82 Long term (current) use of aspirin
CPT/HCPCS: 36415; 43239; 43450; 85025; 93005; J2001; J2250; J2704; U0002; 43235

== ENCOUNTER → 2020-11-27 | Outpatient (CLI) | payer MEDICARE, OTHER ==
[~2020-11-27] MED LIST changes: -FLUCONAZOLE 100 MG TAB ONE; -LIDOCAINE HCL 2% LOCAL INJ 5 ML SDV VIAL INJ ONE; -MIDAZOLAM HCL 2 MG/2 ML VIAL ONE; -PROPOFOL IV EMULSION 10 MG/ML 20 ML VIAL ONE
== END ==
LOC: MAMMO 14:06
PROVIDERS: ATTEND Internal Medicine
DX: Z12.31 Encounter for screening mammogram for malignant neoplasm of breast (principal)
CPT/HCPCS: 77067

== ENCOUNTER → 2021-11-29 | Outpatient (CLI) | payer MEDICARE, OTHER | LOC: MAMMO 08:49 | PROVIDERS: ATTEND Internal Medicine | DX: Z12.31 Encounter for screening mammogram for malignant neoplasm of breast (principal); Z13.820 Encounter for screening for osteoporosis | CPT/HCPCS: 77067; 77080 ==

== ENCOUNTER → 2022-06-04 | Outpatient (CLI) | payer MEDICARE, OTHER | LOC: US 08:26 | PROVIDERS: ATTEND Internal Medicine | DX: R10.9 Unspecified abdominal pain (principal); M54.50 Low back pain, unspecified | CPT/HCPCS: 76700; 76857 ==

== ENCOUNTER → 2022-10-09 | Day surgery (SDC) | payer MEDICARE, OTHER ==
[2022-10-06 11:02] LABS: BASOPHILS # (AUTO) 0.1 (0.0-0.1); BASOPHILS % 0.6 % (0.0-1.0); EOSINOPHILS # (AUTO) 0.1 (0.0-0.4); HEMATOCRIT 39.7 % (34.2-44.1); HEMOGLOBIN 13.2 g/dL (12.0-16.0); LYMPHOCYTES # (AUTO) 2.6 (1.0-3.2); LYMPHOCYTES % 25.4 % (18.0-39.1); MEAN CORPUSCULAR HEMOGLOBIN 25.9 pg (28-32); MEAN CORPUSCULAR HGB CONC 33.2 g/dL (31-35); MEAN CORPUSCULAR VOLUME 77.8 fL (81-99); MONOCYTES # (AUTO) 0.7 (0.2-0.8); MONOCYTES % 6.8 % (4.4-11.3); NEUTROPHILS # (AUTO) 6.8 (2.1-6.9); NEUTROPHILS % 66.1 % (38.7-80.0); PLATELET COUNT 206 x10e3/uL (140-360); RED CELL DISTRIBUTION WIDTH 15.5 % (11.7-14.4)
[~2022-10-09] MED LIST changes: +CENTRUM ADULTS1 EACH PO; +FISH OIL 1,001000 M1 PO; +GAS RELIEF80 MG PO; +GLUCAGON FOR INJ 1 MG VIAL ONE; +HYOSCYAMINE SULFATE 0.5 MG/ML INJ ONE; +LACTATED RINGER'S 1,000 ML ONE; +LIDOCAINE HCL 2% LOCAL INJ 5 ML SDV VIAL INJ ONE; +MAGNESIUM PO; +PROPOFOL IV EMULSION 10 MG/ML 20 ML VIAL ONE; +TIZANIDINE HCL4 MG PO; +VITAMIN C1000 MG PO
[2022-10-09 09:12] VITALS: TEMP 97.9
[2022-10-09 09:55] VITALS: BP 142/85; PULSE 76; RESP 18; O2SAT 96
== END | disposition home or self-care (01) ==
LOC: OR 06:10
PROVIDERS: ATTEND Internal Medicine Gastroenterology
DX: Z09 Encounter for follow-up examination after completed treatment for conditions other than malignant neoplasm (principal); Z86.010 Personal history of colon polyps; K57.30 Diverticulosis of large intestine without perforation or abscess without bleeding; K64.8 Other hemorrhoids; Z71.3 Dietary counseling and surveillance; I10 Essential (primary) hypertension; Z71.89 Other specified counseling; M54.9 Dorsalgia, unspecified; Z01.810 Encounter for preprocedural cardiovascular examination; Z01.812 Encounter for preprocedural laboratory examination; Z79.82 Long term (current) use of aspirin; Z79.899 Other long term (current) drug therapy; Z68.30 Body mass index [BMI] 30.0-30.9, adult
CPT/HCPCS: 36415; 45378; 85025; 93005; J1610; J1980; J2001

== ENCOUNTER 2023-01-30 09:56 | Outpatient (RCR) | payer MEDICARE, OTHER ==
[~2023-01-30 09:56] MED LIST changes: +AMOX TR-K CLV1 EAC2 PO; -GLUCAGON FOR INJ 1 MG VIAL ONE; -HYOSCYAMINE SULFATE 0.5 MG/ML INJ ONE; -LACTATED RINGER'S 1,000 ML ONE; -LIDOCAINE HCL 2% LOCAL INJ 5 ML SDV VIAL INJ ONE; +LIDOCAINE VISC 2% SOLN 15 ML UDC ONE; +LIDOCAINE/PRILOCAINE 2.5-2.5% KIT ONE; +MUPIROCIN 2% OINT 22 GM TUBE ONE; +MUPIROCIN22 GM TOP; -PROPOFOL IV EMULSION 10 MG/ML 20 ML VIAL ONE
== END 2023-02-10 ==
LOC: WCC 09:56
PROVIDERS: ATTEND Internal Medicine Infectious Disease
DX: S81.802D Unspecified open wound, left lower leg, subsequent encounter (principal)

== ENCOUNTER → 2023-12-10 | Outpatient (REF) | payer MEDICARE ==
[~2023-12-10] MED LIST changes: -LIDOCAINE VISC 2% SOLN 15 ML UDC ONE; -LIDOCAINE/PRILOCAINE 2.5-2.5% KIT ONE; -MUPIROCIN 2% OINT 22 GM TUBE ONE
== END ==
LOC: MAMMO 10:41
PROVIDERS: ATTEND Internal Medicine
DX: Z12.31 Encounter for screening mammogram for malignant neoplasm of breast (principal)
CPT/HCPCS: 77067

== ENCOUNTER → 2024-03-30 | Day surgery (SDC) | payer MEDICARE ==
[2024-03-28 14:06] LABS: BASOPHILS % 0.3 % (0.0-1.0); EOSINOPHILS # (AUTO) 0.1 (0.0-0.4); EOSINOPHILS % 0.8 % (0.0-6.0); HEMATOCRIT 38.6 % (34.2-44.1); HEMOGLOBIN 12.2 g/dL (12.0-16.0); LYMPHOCYTES # (AUTO) 0.8 (1.0-3.2); MEAN CORPUSCULAR HEMOGLOBIN 26.9 pg (28-32); MEAN CORPUSCULAR HGB CONC 31.6 g/dL (31-35); MONOCYTES # (AUTO) 0.7 (0.2-0.8); MONOCYTES % 7.4 % (4.4-11.3); NEUTROPHILS # (AUTO) 8.2 (2.1-6.9); NEUTROPHILS % 83.2 % (38.7-80.0); PLATELET COUNT 189 x10e3/uL (140-360); RED BLOOD COUNT 4.54 x10e6/uL (3.6-5.1); RED CELL DISTRIBUTION WIDTH 14.8 % (11.7-14.4); WHITE BLOOD COUNT 9.87 x10e3/uL (4.8-10.8)
[2024-03-28 14:14] LABS: ANION GAP 15.9 mmol/L (8-16); CREATININE, SERUM 0.87 mg/dL (0.57-1.11); POTASSIUM 3.9 mmol/L (3.5-5.1)
[~2024-03-30] MED LIST changes: +ACETAMINOPHEN 1000 MG/100 ML 100 ML IV ONE; +DEXAMETHASONE SOD PHOS INJ 4 MG/ML SDV ONE; +FAMOTIDINE 20 MG/2 ML VIAL IV ONE; +FENTANYL CITRATE/PF 100MCG/2 ML INJ ONE; +KETOROLAC TROMETHAMINE 30 MG/ML VIAL ONE; +LACTATED RINGER'S 1,000 ML ONE; +LIDOCAINE HCL 2% LOCAL INJ 5 ML SDV VIAL INJ ONE; +ONDANSETRON HCL INJ 2MG/ML 2ML 2 MG/ML VIAL ONE; +PROPOFOL IV EMULSION 10 MG/ML 20 ML VIAL ONE; +ROCURONIUM BROMIDE 1 ML IV ONE; +SEVOFLURANE INHAL SOLN 250 ML PEN BTL ONE; +SUGAMMADEX SODIUM 200 MG/2 ML VIAL IV ONE; +[UNRECOGNIZED DRUG - OTHER]
[2024-03-30] MEDS: LACTATED RINGER'S 1,000 ML ONE (07:00)
[2024-03-30] MEDS: FENTANYL CITRATE/PF 100MCG/2 ML INJ ONE (11:35)
[2024-03-30 12:30] VITALS: BP 170/94; PULSE 85; RESP 18; O2SAT 99
== END | disposition home or self-care (01) ==
LOC: OR 06:27
PROVIDERS: ATTEND Surgery
DX: K40.90 Unilateral inguinal hernia, without obstruction or gangrene, not specified as recurrent (principal); I10 Essential (primary) hypertension; Z01.810 Encounter for preprocedural cardiovascular examination; Z01.812 Encounter for preprocedural laboratory examination; Z01.818 Encounter for other preprocedural examination; Z79.82 Long term (current) use of aspirin; Z79.899 Other long term (current) drug therapy
CPT/HCPCS: 36415; 49505; 71046; 80048; 85025; 88302; 93005; C1781; J0131; J1100; J1885; J2003; J2405; J2704; J3010; J7121

== ENCOUNTER → 2024-08-31 | Outpatient (REF) | payer MEDICARE ==
[~2024-08-31] MED LIST changes: -ACETAMINOPHEN 1000 MG/100 ML 100 ML IV ONE; -DEXAMETHASONE SOD PHOS INJ 4 MG/ML SDV ONE; -FAMOTIDINE 20 MG/2 ML VIAL IV ONE; -FENTANYL CITRATE/PF 100MCG/2 ML INJ ONE; -KETOROLAC TROMETHAMINE 30 MG/ML VIAL ONE; -LACTATED RINGER'S 1,000 ML ONE; -LIDOCAINE HCL 2% LOCAL INJ 5 ML SDV VIAL INJ ONE; -ONDANSETRON HCL INJ 2MG/ML 2ML 2 MG/ML VIAL ONE; -PROPOFOL IV EMULSION 10 MG/ML 20 ML VIAL ONE; -ROCURONIUM BROMIDE 1 ML IV ONE; -SEVOFLURANE INHAL SOLN 250 ML PEN BTL ONE; -SUGAMMADEX SODIUM 200 MG/2 ML VIAL IV ONE
== END ==
LOC: RAD 10:49
PROVIDERS: ATTEND Internal Medicine
DX: M25.512 Pain in left shoulder (principal); M25.612 Stiffness of left shoulder, not elsewhere classified

== ENCOUNTER → 2024-12-09 | Outpatient (REF) | payer MEDICARE | LOC: MAMMO 08:30 | PROVIDERS: ATTEND Internal Medicine | DX: Z12.31 Encounter for screening mammogram for malignant neoplasm of breast (principal) | CPT/HCPCS: 77067 ==

== ENCOUNTER → 2024-12-28 | Outpatient (REF) | payer MEDICARE | LOC: RAD 08:31 | PROVIDERS: ATTEND Internal Medicine | DX: R01.1 Cardiac murmur, unspecified (principal); I12.9 Hypertensive chronic kidney disease with stage 1 through stage 4 chronic kidney disease, or unspecified chronic kidney disease | CPT/HCPCS: 93306 ==

== ENCOUNTER → 2024-12-29 | Outpatient (REF) | payer MEDICARE | LOC: RAD 16:02 | PROVIDERS: ATTEND Internal Medicine | DX: M54.40 Lumbago with sciatica, unspecified side (principal) | CPT/HCPCS: 72110 ==